=== PATIENT | male | born 1975 | race African-American/Black ===

== ENCOUNTER 2017-06-11 18:39 | Emergency (ER) | payer OTHER ==
[~2017-06-11] VITALS: Ht 188 cm; Wt 149.2 kg
[2017-06-11 19:41] VITALS: BP 139/71
[2017-06-11] MEDS ORDERED: CEFTRIAXONE 1,000 MG ONE ×2 (19:43→19:46)
[2017-06-11] MEDS ORDERED: CEFTRIAXONE 1,000 MG IM ONE (20:00)
== END 2017-06-11 20:56 | disposition home or self-care (01) ==
LOC: ED 20:30
DX: L03.011 Cellulitis of right finger (principal); M13.841 Other specified arthritis, right hand
CPT/HCPCS: 29125; 73130; 96372; 99284; J0696

== ENCOUNTER 2017-07-15 10:29 | Emergency (ER) | payer OTHER ==
[~2017-07-15] VITALS: Ht 188 cm; Wt 148.4 kg
[2017-07-15 10:31] VITALS: BP 150/84
[2017-07-15] MEDS ORDERED: KETOROLAC 30 MG/1 ML ONE (10:54)
[2017-07-15] MEDS ORDERED: COLCHICINE 0.6 MG TABLET ONE (10:54)
[2017-07-15] MEDS ORDERED: KETOROLAC 30 MG/1 ML IM ONE (11:00)
[2017-07-15] MEDS ORDERED: COLCHICINE 0.6 MG TABLET PO ONE (11:00)
== END 2017-07-15 11:17 | disposition home or self-care (01) ==
LOC: ED 10:52
DX: M10.9 Gout, unspecified (principal); M19.90 Unspecified osteoarthritis, unspecified site; Z76.0 Encounter for issue of repeat prescription; Z86.718 Personal history of other venous thrombosis and embolism
CPT/HCPCS: 96372; 99283; J1885